=== PATIENT | male | born 1990 | race Caucasian/White ===

== ENCOUNTER 2024-03-09 09:32 | Outpatient (CLI) | payer BC, SELFPAY ==
[2024-03-09 09:49] LABS: Basophils Absolute Auto 0.06 K/mm3 (0.00-0.10); Basophils Percent Auto 0.8 % (0.0-1.0); Eosinophils Percent Auto 3.9 % (1.0-6.0); Hematocrit 46.3 % (40.0-54.0); Hemoglobin 16.7 g/dL (14.0-18.0); Immature Granulocyte Absolute 0.04 K/mm3 (0.00-0.00); Immature Granulocyte Percent A 0.5 % (0.0-0.0); Lymphocytes Absolute Auto 2.63 K/mm3 (1.10-4.50); Lymphocytes Percent Auto 33.9 % (18.0-42.0); Mean Corpuscular HGB Conc 36.1 g/dL (32-36); Mean Corpuscular Hemoglobin 29.2 pg (27.0-31.0); Mean Corpuscular Volume 81.1 fL (78.0-102.0); Mean Platelet Volume 11.1 fl (8.7-11.0); Monocytes Absolute Auto 0.42 K/mm3 (0.10-0.90); Monocytes Percent Auto 5.4 % (2.0-11.0); Neutrophils Absolute Auto 4.31 K/mm3 (1.70-7.20); Neutrophils Percent Auto 55.5 % (50.0-70.0); Platelet Count Result 182 K/mm3 (150-420); Red Blood Count 5.71 M/mm3 (4.70-6.10); Red Cell Distribution Width 12.4 % (11.6-14.4); White Blood Count 7.8 K/mm3 (4.8-10.8)
[2024-03-09 10:37] LABS: Alanine Aminotransferase 103 U/L (16-63); Albumin Level 4.1 g/dL (3.4-5.0); Alkaline Phosphatase 139 U/L (46-116); Anion Gap 11 mmol/L (4-12); Aspartate Amino Transferase 39 U/L (15-37); Bilirubin,Total 0.4 mg/dL (0.00-1.00); Blood Urea Nitrogen 11 mg/dL (7-18); Calcium 9.1 mg/dL (8.5-10.1); Carbon Dioxide 25 mmol/L (21-32); Chloride 103 mmol/L (98-108); Cholesterol 246 mg/dL (0-200); Estimated Glomerular Filt Rate > 60; Glucose 152 mg/dL (70-99); HDL Direct 24 mg/dL (40-60); LDL Cholesterol Calculated 165 mg/dL (<130); Osmolality Calculated 290 mOsm/kg (285-295); Potassium 3.9 mmol/L (3.5-5.1); Sodium 139 mmol/L (136-145); Total Protein 7.2 g/dL (6.4-8.2); Triglycerides 285 mg/dL (0-150)
[2024-03-10 14:14] LABS: Alpha-1-Antitrypsin, QN 147 mg/dL (83-199)
== END 2024-03-09 09:33 | disposition home or self-care (01) ==
LOC: CHSLAB 09:35
PROVIDERS: PCP Family Medicine; Visit Provider Family Medicine
DX: Z83.49 Family history of other endocrine, nutritional and metabolic diseases (principal)
CPT/HCPCS: 36415; 80053; 80061; 82103; 85025

== ENCOUNTER 2024-03-17 07:19 | Outpatient (CLI) | payer BC, SELFPAY ==
--- NOTE | ~2024-03-17 | US_ITS ---
Limited Abdominal Sonogram: Real-time sonographic imaging of the right upper quadrant was performed. Clinical History: Liver disease Findings: The liver appears echogenic, with no evidence of bile duct dilatation. Probable focal fatt y sparing adjacent to the gallbladder fossa. Main portal vein demonstrates normal direction of flow. The gallbladder is partially distended, and appears normal with no evidence of gallstone or wall thic kening. The common bile duct measures 5 mm. The visualized pancreas, aorta, and IVC are unremarkable . Impression: Diffuse fatty infiltration of liver. Probable fatty sparing adjacent to the gallbladder fossa. Reviewed, dictated and finalized at location . [employer] TECHNICIAN Impression: Diffuse fatty infiltration of liver. Probable fatty sparing adjacent to the gal lbladder fossa.
== END 2024-03-17 07:20 | disposition home or self-care (01) ==
LOC: CHSIMG 07:21
PROVIDERS: PCP Family Medicine; Visit Provider Family Medicine
DX: K76.0 Fatty (change of) liver, not elsewhere classified (principal); Z83.49 Family history of other endocrine, nutritional and metabolic diseases
CPT/HCPCS: 76705

== ENCOUNTER 2024-08-25 17:13 | Emergency (ER) | payer BC, SELFPAY ==
[2024-08-25 17:15] VITALS: BP 128/87; PULSE 97; RESP 18; TEMP 36.6; O2SAT 97
--- NOTE | 2024-08-25 17:28 | ED_ITS ---
HPI - Wound/Laceration General Chief Complaint: Wound/Laceration Stated Complaint: cut on the rt. hand Time Seen by Provider: 08/25/24 17:28 Source: patient Mode of arrival: ambulatory Limitations: no limitations History of Present Illness HPI narrative: 10-year-old male with no significant past medical history presents to the ED with -- 3 cm laceration of the right thenar eminence. He got caught while trying to open a tin can. profuse bleeding. No recent tetanus immunization. Onset (ago): hour(s) ( 1 hour ago) Extremity Location: Right: hand Body four view annotation: 2 1. 3 cm full-thickness laceration over the right thenar eminence. Distal neurovascular bundle is intact. Right thumb movements are intact. Place: home Patient tetanus UTD: No Context: accidental Associated symptoms: none Related Data Allergies Allergy/AdvReac Type Severity Reaction Status Date / Time No Known Allergies Allergy Unverified 03/25/24 09:08 Review of Systems 2 Review of Systems: All systems reviewed & are unremarkable except as noted in HPI and below PMFSH Past Medical History Medical History Other injury of muscle(s) and tendon(s) of the rotator cuff of right shoulder, subsequent encounter Family History Family History Father Heart disease Liver cirrhosis secondary to MENESES (nonalcoholic steatohepatitis) Grandparent [id number] deficiency Social History Social History Years smoked: 11 Smoking status: Current every day smoker Tobacco type: cigarettes Alcohol intake: former Exam 2 Narrative: Vitals are stable Const: General: healthy appearing and no acute distress Nutritional Appearance: well nourished Orientation/consciousness: patient oriented x3 Limitations: no limitations HENMT: Head: normal to inspection Ears: external ears normal F erik/Nose/Sinus: Normal external nose present Face and sinus: normal facial exam Mouth: Yes Normal oral and palatal mucosa present Throat: posterior oropharynx normal Eyes: Conjunctivae: conjunctivae normal Pupils: Equal, round and reactive pupils present EOM: EOMs intact bilaterally Direct Ophthalmoscopy: no photophobia Neck: Neck: normal visual inspection, no lymphadenopathy and no meningeal signs Chest: Chest palpation & inspection: normal inspection of the chest Resp: Effort & Inspection: normal respiratory effort Auscultation: clear to auscultation bilaterally Cardio: Rate: regular rate Rhythm: regular rhythm GI: GI Palp: Yes Soft to palpation Auscultation: normal bowel sounds O ther: no tenderness/rigidity / rebound. Back/Spine/Pelvis: Back: no CVA tenderness Skin: General skin exam: normal color Other: Right thenar eminence has a 3 cm full-thickness laceration. Distal neurovascular bundle is intact. Normal movements of the thumb. Neuro: General: patient oriented x3, moves all extremities, no meningeal signs, no focal motor deficits and CN's II-XI intact bilaterally Cranial nerves: Yes Nystagmus not present Speech: normal speech Gait exam (Neuro): Normal gait present Extrem: General: normal to inspection and no clubbing, cyanosis or edema Psych: Mental Status: mental status grossly normal Affect: normal affect Attitude: cooperative Course Course Emergency Course: Hand laceration status post suturing Vital Signs Vital signs: Vital Signs Temperature 36.6 C 08/25/24 17:15 Pulse Rate 97 08/25/24 17:15 Respiratory Rate 18 08/25/24 17:15 Blood Pressure 128/87 08/25/24 17:15 Pulse Oximetry 97 08/25/24 17:15 Oxygen Delivery Room Air 08/25/24 17:15 Temperature 36.6 C 08/25/24 17:15 Pulse Rate 97 08/25/24 17:15 Respiratory Rate 18 08/25/24 17:15 Blood Pressure 128/87 08/25/24 17:15 Pulse Oximetry 97 08/25/24 17:15 Oxygen Delivery Room Air 08/25/24 17:15 Procedures Laceration Laceration 1: Date: 08/25/24 Time: 18:04 Site: hand Side (If applicable): right Size (cm): 3 Description: linear Depth: [id number] Local Anesthetic: lidocaine 1% Amount of anesthesia used (mL): 5 Pre-repair: wound explored ====== Skin Level ====== Skin layer closed with: nylon Size (cm): 3-0 Number of sutures: 7 Technique: running ====== Subcutaneous Layer ====== ====== Muscle Layer ====== ====== Tendon Layer ====== MDM - Wound/Laceration MDM Narrative Medical decision making narrative: hand laceration Differential Diagnosis Differential diagnosis: Likely abrasion Discharge Plan Discharge Clinical Impression: Hand laceration Qualifiers: Encounter type: initial encounter Foreign body presence: without foreign body L aterality: right Qualified Code(s): S61.411A - Laceration without foreign body of right hand, initial encounter Patient Disposition: Home Condition: Stable Instructions: Antibiotic Form, Laceration (ED) Patient Language: Tanzanian Prescriptions: New amoxicillin-pot clavulanate 875-125 mg tablet 1 tablet PO Q12H Qty: 14 0RF Follow-up/Referrals: Osorio Moffett DO [Primary Care Provider] - Time of Disposition: 18:06
[2024-08-25] MEDS: LIDOCAINE 1% LOCAL INJ 10 ML VIAL 5 ML INFILTRATE (17:41)
[2024-08-25] MEDS: NEOMYCIN/POLYMYXIN/BACITRACIN OINTMENT PACKET 1 PACKET TOPICAL (18:08)
[2024-08-25] MEDS: TETANUS,DIPHTHERIA,AC PERTUSSIS ADULT 0.5 ML (ADACEL) IM (18:09)
== END 2024-08-25 18:24 | disposition home or self-care (01) ==
LOC: CHSED 18:27
PROVIDERS: Emergency Provider Internal Medicine Critical Care Medicine; PCP Family Medicine
DX: S61.411A Laceration without foreign body of right hand, initial encounter (principal); F17.210 Nicotine dependence, cigarettes, uncomplicated; Z23 Encounter for immunization; W26.8XXA Contact with other sharp object(s), not elsewhere classified, initial encounter
CPT/HCPCS: 12002; 90471; 90715; 99283; J2003

== ENCOUNTER 2025-01-19 09:45 | Emergency (ER) | payer SELFPAY ==
--- NOTE | ~2025-01-19 | CT_ITS ---
CT ABDOMEN AND PELVIS WITHOUT CONTRAST Clinical History: RT posterior/flank pain X few days Comparison: CT 02/13/2017 Technique: Unenhanced axial images lung bases to symphysis pubis Coronal, sagittal reformats CT images acquired with automatic exposure control for dose reduction DLP: 765 mGy-cm Findings: Without intravenous contrast, sensitivity for detecting visceral parenchymal abnormalities decreased. Lung bases: Clear. Visualized heart and pericardium: Unremarkable. Liver: Enlarged. Steatosis. Gallbladder: Unremarkable. Spleen: Unremarkable. Pancreas: Unremarkable. Adrenal glands: Unremarkable. Kidneys: Right kidney- No hydronephrosis. Mild pelviectasis. No renal stones. Left kidney- No hydronephrosis. Pelvocaliectasis. Several stones up to 8 mm. Distal esophagus/stomach: Unremarkable. Small bowel loops: Normal caliber and wall thickness. Colon: Normal caliber and wall thickness. Normal RLQ appendix. Nodes: No enlarged nodes. Peritoneum: No ascites. No free intraperitoneal air. Urinary bladder: Mild wall thickening. Prostate: Unremarkable. Bones: No acute bony abnormality. Soft tissues: Unremarkable. Unopacified abdominal aorta: No aneurysmal dilatation. IMPRESSION: 1. Several stones left kidney but no hydronephrosis. 2. No stones or hydronephrosis right kidney. 3. Cystitis not excluded. Reviewed, dictated and finalized at location R.
[2025-01-19 09:46] VITALS: BP 151/96; PULSE 74; RESP 16; TEMP 36.6; O2SAT 100
--- NOTE | 2025-01-19 09:49 | ED_ITS ---
HPI - Back Pain/Injury General Chief Complaint: Back Pain/Injury Stated Complaint: back pain Time Seen by Provider: 01/19/25 09:49 Source: patient Mode of arrival: ambulatory Limitations: no limitations History of Present Illness HPI Narrative: Patient is a 34-year-old male with right lower back pain that radiates to the right flank. He has had this for the past 3-4 days. No injury. He is concerned because his uncle just and never went to the doctor. This patient has concerns because he has never been to the doctor in a long time. MD elicited complaint: back pain (Mid to right lower back) Pertinent past history: other (None) Onset (ago): day(s) (3-4) Timing: constant Severity: moderate Pain scale (0-10): 7 Similar Symptoms Previously: No Quality: sharp and spasming Location: lumbar spine, right flank and right lower back Radiation: none Exacerbating factors: movement Relieving factors: movement Context: unknown Associated symptoms: denies other symptoms Treatments prior to arrival: other (None) Related Data Allergies Allergy/AdvReac Type Severity Reaction Status Date / Time No Known Allergies Allergy Verified 01/19/25 09:49 Review of Systems 2 Review of Systems: All systems reviewed & are unremarkable except as noted in HPI and below Constitutional: Constitutional: Reports no additional constitutional complaints Eyes: Eyes: Reports no additional eye complaints ENT: Reports system reviewed and no additional complaints, except as documented Cardiovascular: Cardiovascular: Reports no additional cardiovascular complaints Respiratory: Respiratory: Reports no additional respiratory complaints Gastrointestinal: Gastrointestinal: Reports no additional gastrointestinal complaints Genitourinary: Genitourinary: Reports no additional male genitourinary complaints Musculoskeletal: Musculoskeletal: Reports no additional musculoskeletal complaints Integumentary/Breasts: Skin/Breast: Reports system reviewed and no additional complaints, except as docu Neurologic: Reports system reviewed and no additional complaints, except as documented Psychiatric: Psychiatric: Reports no additional psychiatric complaints Endocrine: Endocrine: Reports no additional endocrine complaints Hematologic/Lymphatic: Hematologic/Lymphatic: Reports no additional hematologic/lymphatic complaints Allergic/Immunologic: Allergic/Immunologic: Reports no additional allergic/immunologic complaints PMFSH Past Medical History Medical History Other injury of muscle(s) and tendon(s) of the rotator cuff of right shoulder, subsequent encounter Family History Family History Father Heart disease Liver cirrhosis secondary to MENESES (nonalcoholic steatohepatitis) Grandparent [id number] deficiency Social History Social History Years smoked: 11 Smoking status: Current every day smoker Tobacco type: cigarettes Alcohol intake: former Exam 2 Const: General: healthy appearing Nutritional Appearance: well nourished Orientation/consciousness: patient oriented x3 HENMT: Head: normal to inspection Ears: external ears normal F erik/Nose/Sinus: Normal external nose present Eyes: Conjunctivae: conjunctivae normal Pupils: Equal, round and reactive pupils present EOM: EOMs intact bilaterally Neck: Neck: normal visual inspection Chest: Chest palpation & inspection: normal inspection of the chest Resp: Effort & Inspection: normal respiratory effort and not labored A uscultation: clear to auscultation bilaterally and no crackles Cardio: Rate: regular rate Rhythm: regular rhythm Heart sounds: no murmurs GI: Inspection: non-distended Auscultation: normal bowel sounds Back/Spine/Pelvis: Back: no CVA tenderness Skin: General skin exam: normal color Rashes: no rashes Wounds: no wounds Neuro: General: patient oriented x3, moves all extremities and no meningeal signs Extrem: General: normal to inspection, no clubbing, cyanosis or edema and no pedal edema Psych: Mental Status: mental status grossly normal Affect: normal affect Attitude: cooperative Course Vital Signs Vital signs: Vital Signs Temperature 36.6 C 01/19/25 09:46 Pulse Rate 74 01/19/25 09:46 Respiratory Rate 16 01/19/25 09:46 Blood Pressure 151/96 H 01/19/25 09:46 Pulse Oximetry 100 01/19/25 09:46 Oxygen Delivery Room Air 01/19/25 09:46 Temperature 36.6 C 01/19/25 09:46 Pulse Rate 74 01/19/25 09:46 Respiratory Rate 16 01/19/25 09:46 Blood Pressure 151/96 H 01/19/25 09:46 Pulse Oximetry 100 01/19/25 09:46 Oxygen Delivery Room Air 01/19/25 09:46 MDM - Back Pain/Injury MDM Narrative Medical decision making narrative: Patient is a 34-year-old male with right lower back pain that radiates to the flank on the right over the past week. Specifically 3-[address] scan abdomen and pelvis without contrast. Labs. Urine. Reassurance based on his symptoms and exam this is likely musculoskeletal. He is concerned his uncle recently. Reassurance given today. Lab Data Attestation: I reviewed the patient's lab results. 01/19/25 10:16 01/19/25 10:16 Labs: Lab Results 01/19/25 01/19/25 Range/Units 10:16 10:32 WBC 9.9 (4.8-10.8) K/mm3 RBC 5.55 (4.70-6.10) M/mm3 Hgb 16.1 (14.0-18.0) g/dL Hct 46.2 (40.0-54.0) % MCV 83.2 (78.0-102.0) fL MCH 29.0 (27.0-31.0) pg MCHC 34.8 (32-36) g/dL RDW 12.1 (11.6-14.4) % Plt Count 189 (150-420) K/mm3 MPV 11.3 H (8.7-11.0) fl Immature Gran % (Auto) 0.5 H (0.0-0.0) % Neut % (Auto) 54.0 (50.0-70.0) % Lymph % (Auto) 35.1 (18.0-42.0) % [place] % (Auto) 6.3 (2.0-11.0) % Eos % (Auto) 3.5 (1.0-6.0) % Baso % (Auto) 0.6 (0.0-1.0) % Lymph # (Auto) 3.49 (1.10-4.50) K/mm3 [place] # (Auto) 0.63 (0.10-0.90) K/mm3 Eos # (Auto) 0.35 (0.02-0.50) K/mm3 Baso # (Auto) 0.06 (0.00-0.10) K/mm3 Abs Immat Gran (auto) 0.05 H (0.00-0.00) K/mm3 Absolute Neuts (auto) 5.36 (1.70-7.20) K/mm3 Absolute Nucleated RBC 0.00 (0.00-0.00) K/mm3 Nucleated RBC % 0.0 (0-0.0) % Sodium 142 (137-145) mmol/L Potassium 4.1 (3.4-5.0) mmol/L Chloride 106 (98-107) mmol/L Carbon Dioxide 28 (22-30) mmol/L Anion Gap 8 (4-12) mmol/L BUN 9 (9-20) mg/dL Creatinine 0.76 (0.7-1.3) mg/dL Estim Creat Clear Calc 138 ml/min Estimated GFR > 60 (59 - ) Glucose 92 (65-110) mg/dL Calculated Osmolality 292 (285-295) mOsm/kg Calcium 9.7 (8.4-10.2) mg/dL Total Bilirubin 0.6 (0.2-1.3) mg/dL AST 27 (17-59) U/L ALT 35 (6-50) U/L Alkaline Phosphatase 108 (38-126) U/L Total Protein 8.4 H (6.3-8.2) g/dL Albumin 4.6 (3.5-5.1) g/dL Urine Color Light yellow (Yellow) Urine Appearance Clear (Clear) Urine pH 6.5 (5.0-8.0) Ur Specific [place] 1.010 (1.010-1.020) Urine Protein Negative (Negative) Urine Glucose (UA) Negative (Negative) Urine Ketones Negative (Negative) Ur Blood (Man) Negative (Negative) Urine Nitrate Negative (Negative) Urine Bilirubin Negative (Negative) Urine Urobilinogen 0.2 (0.2-1.0) mg/dL Leukocyte Esterase Rfl Negative (Negative) GHAZALA/UL Imaging Data Attestation: I personally reviewed and interpreted this imaging study as follows: Radiologist's impression: CT scan of the abdomen and pelvis shows IMPRESSION: 1. Several stones left kidney but no hydronephrosis. 2. No stones or hydronephrosis right kidney. 3. Cystitis not excluded. (UA negative) Discharge Plan Discharge Clinical Impression: Lumbago Qualifiers: Chronicity: acute Back pain laterality: right Sciatica presence: without sciatica Qualified Code(s): M54.50 - Low back pain, unspecified Patient Disposition: Home Condition: Stable Instructions: Acute Low Back Pain (ED) Patient Language: Belizean Prescriptions: New cyclobenzaprine 5 mg tablet 5 mg PO BID PRN (Reason: muscle spasm) Qty: 20 0RF Rx Instructions: 1-2 tabs per dose Follow-up/Referrals: Osorio Moffett DO [Primary Care Provider, [facility]] Time of Disposition: 11:21
[2025-01-19 10:26] LABS: Hematocrit 46.2 % (40.0-54.0); Hemoglobin 16.1 g/dL (14.0-18.0); Immature Granulocyte Percent A 0.5 % (0.0-0.0); Lymphocytes Absolute Auto 3.49 K/mm3 (1.10-4.50); Mean Corpuscular HGB Conc 34.8 g/dL (32-36); Mean Corpuscular Hemoglobin 29.0 pg (27.0-31.0); Mean Corpuscular Volume 83.2 fL (78.0-102.0); Nucleated Red Blood Cells Absolute Auto 0.00 K/mm3 (0.00-0.00); Nucleated Red Blood Cells Perc 0.0 % (0-0.0); Platelet Count Result 189 K/mm3 (150-420); Red Blood Count 5.55 M/mm3 (4.70-6.10); White Blood Count 9.9 K/mm3 (4.8-10.8)
[2025-01-19 10:36] LABS: Add Urine Microscopic? NO; Appearance Urine Clear (Clear); Glucose Urine UA Negative (Negative); Leukocyte Esterase Ur Negative LEU/UL (Negative); Nitrate Urine Negative (Negative); Specific Grav Ur 1.010 (1.010-1.020)
[2025-01-19 10:38] LABS: Alanine Aminotransferase 35 U/L (6-50); Albumin Level 4.6 g/dL (3.5-5.1); Alkaline Phosphatase 108 U/L (38-126); Anion Gap 8 mmol/L (4-12); Aspartate Amino Transferase 27 U/L (17-59); Bilirubin,Total 0.6 mg/dL (0.2-1.3); Blood Urea Nitrogen 9 mg/dL (9-20); Calcium 9.7 mg/dL (8.4-10.2); Carbon Dioxide 28 mmol/L (22-30); Chloride 106 mmol/L (98-107); Estimated CRCL calculation 138 ml/min; Estimated Glomerular Filt Rate > 60; Glucose 92 mg/dL (65-110); Osmolality Calculated 292 mOsm/kg (285-295); Potassium 4.1 mmol/L (3.4-5.0); Sodium 142 mmol/L (137-145); Total Protein 8.4 g/dL (6.3-8.2)
[2025-01-19 11:24] VITALS: BP 141/64; PULSE 61; RESP 17; TEMP 36.7; O2SAT 100
== END 2025-01-19 11:27 | disposition home or self-care (01) ==
PROVIDERS: Emergency Provider Emergency Medicine; PCP Family Medicine
DX: M54.50 Low back pain, unspecified (principal); F17.210 Nicotine dependence, cigarettes, uncomplicated
CPT/HCPCS: 36415; 74176; 80053; 81003; 85025; 99284